=== PATIENT | male | born 1965 | race Caucasian/White ===

== ENCOUNTER → 2024-01-10 09:56 | Outpatient (REF) | payer BC, SELFPAY ==
[2024-01-10 12:27] LABS: Direct Bilirubin 0.3 mg/dl (0.0-0.4); HDL Cholesterol 47 mg/dl; LDL Cholesterol, Calculated 90 mg/dl; Total Bilirubin 1.6 mg/dl (0.2-1.3); Total Cholesterol 165 mg/dl (50-199); Triglyceride 140 mg/dl (10-149); Uric Acid 5.6 mg/dl (3.5-8.5); Very Low Density Lipoprotein 28 mg/dl (0-30)
[2024-01-10 12:57] LABS: PSA, Total - Screen 0.36 ng/ml (0.0-4.0)
== END ==
LOC: HWLAB 09:56
PROVIDERS: ATTENDING PHYSICIAN Nurse Practitioner
DX: R17 Unspecified jaundice (principal); Z12.5 Encounter for screening for malignant neoplasm of prostate; M10.9 Gout, unspecified; Z00.01 Encounter for general adult medical examination with abnormal findings; I10 Essential (primary) hypertension
CPT/HCPCS: 36415; 80061; 82247; 82248; 84550; G0103

== ENCOUNTER → 2024-09-09 10:58 | Outpatient (REF) | payer BC, SELFPAY | LOC: HWRAD 10:58 | DX: M25.562 Pain in left knee (principal) | CPT/HCPCS: 73564 ==

== ENCOUNTER → 2024-10-29 13:37 | Outpatient (REF) | payer BC, SELFPAY ==
[2024-10-29 15:57] LABS: Hematocrit 39.6 % (39.0-52.0); Hemoglobin 13.7 g/dL (13.0-18.0); Mean Corp Hgb Conc. 34.6 g/dL (33.0-37.0); Mean Corpuscular Volume 87.6 fL (80.0-94.0); Nucleated Red Blood Cells % 0 % (-); Platelet Count 128 10^3/uL (130-400); Red Cell Dist. Width 13.1 % (11.5-14.5)
[2024-10-29 16:04] LABS: Blood Urea Nitrogen 15 mg/dl (9-20); Calcium 9.4 mg/dl (8.4-10.2); Carbon Dioxide 25 mmol/L (22-30); Chloride 108 mmol/L (98-107); Glucose 124 mg/dl (70-99); Potassium 4.0 mmol/L (3.5-5.1); Sodium 139 mmol/L (135-145); eGFR > 60.00
== END ==
LOC: HWLAB 13:37
PROVIDERS: ATTENDING PHYSICIAN Specialist
DX: Z01.818 Encounter for other preprocedural examination (principal)
CPT/HCPCS: 36415; 80048; 85025

== ENCOUNTER → 2025-01-16 08:57 | Outpatient (REF) | payer BC, SELFPAY ==
[2025-01-16 12:32] LABS: Hematocrit 43.0 % (39.0-52.0); Hemoglobin 14.3 g/dL (13.0-18.0); Mean Corp Hgb Conc. 33.3 g/dL (33.0-37.0); Mean Corpuscular Volume 90.0 fL (80.0-94.0); Nucleated Red Blood Cells % 0 % (-); Platelet Count 136 10^3/uL (130-400); Red Cell Dist. Width 12.6 % (11.5-14.5)
[2025-01-16 12:42] LABS: ALT (SGPT) 20 U/L (0-50); AST (SGOT) 20 U/L (17-59); Albumin 4.5 g/dl (3.5-5.0); Alkaline Phosphatase 53 U/L (38-126); Blood Urea Nitrogen 19 mg/dl (9-20); Calcium 9.4 mg/dl (8.4-10.2); Carbon Dioxide 28 mmol/L (22-30); Chloride 105 mmol/L (98-107); Glucose 120 mg/dl (70-99); HDL Cholesterol 58 mg/dl; LDL Cholesterol, Calculated 93 mg/dl; Potassium 4.9 mmol/L (3.5-5.1); Sodium 139 mmol/L (135-145); Total Protein 7.2 g/dl (6.3-8.2); Very Low Density Lipoprotein 33 mg/dl (0-30); eGFR > 60.00
[2025-01-16 13:01] LABS: PSA, Total - Screen 0.74 ng/ml (0.0-4.0)
[2025-01-16 13:10] LABS: Glycohemoglobin (HgbA1c) 5.3 % (4.0-5.6)
== END ==
LOC: HWLAB 08:57
DX: Z00.01 Encounter for general adult medical examination with abnormal findings (principal); R73.09 Other abnormal glucose; Z12.5 Encounter for screening for malignant neoplasm of prostate
CPT/HCPCS: 36415; 80053; 80061; 82248; 83036; 84443; 85025; G0103